=== PATIENT | female | born 1965 | race Caucasian/White ===

== ENCOUNTER → 2016-08-17 | Day surgery (SDC) | payer OTHER ==
[~2016-08-17] MED LIST: ASPIRIN EC81 M1 PO; ATENOLOL-CHLORT1 TA2; FLUOXETINE HCL20 M1 PO; LEVOTHYROXINE50 MC1 PO; LEVOXYL75 MC1 PO; MELOXICAM15 MG; MOBIC15 MG PO; NEURONTIN100 MG PO; OMEPRAZOLE40 MG PO; ONDANSETRON ODT4 MG; PEPCID40 MG PO; PRILOSEC; PRILOSEC20 M1 PO; PRILOSEC40 MG PO; SARAFEM20 MG PO; SERTRALINE HCL100 M1 PO; TIZANIDINE HCL4 M1 PO; ZANAFLEX4 M1 PO
--- NOTE | ~2016-08-17 | OR ---
Unit #: [id number] #: [id number] Patient: TAVO QUINTEROS [id number] [address] [address] [id number] O MR#: [id number] NAME: TAVO QUINTEROS ROOM: Date of Procedure: 08/17/2016 Admission Date: 08/17/2016 Surgeon: Matthieu Montero M.D. : 1965 Attending Physician: Matthieu Montero M.D. Primary Care Physician: Juan Grajeda M.D. OPERATIVE REPORT JOB NOTE: CC: DR. GRAJEDA PREOPERATIVE DIAGNOSIS Intermittent rectal bleeding. POSTOPERATIVE DIAGNOSIS Intermittent rectal bleeding. PROCEDURE PERFORMED Colonoscopy to cecum. ANESTHESIA Monitored anesthesia care. FINDINGS The patient was found to have mild internal hemorrhoids and redundant anal tissue. SPECIMENS Sent to pathology. COMPLICATIONS None apparent. CONDITION The patient tolerated the procedure well. INDICATIONS FOR PROCEDURE The patient is a 51-year-old white female, who has had intermittent bright red blood per rectum. She presents at this time for evaluation by colonoscopy. DESCRIPTION OF PROCEDURE After obtaining informed consent, the patient was brought to the endoscopy suite and after adequate monitored anesthesia care, had the colonoscope placed through the anus and advanced to the level of the cecum without difficulty with the lumen always in view. The cecum was normal as was the ileocecal valve. The ascending colon was normal as was the hepatic flexure, transverse colon, splenic flexure, descending colon, sigmoid colon and upper rectum. No diverticula were seen. On retroflexing in the rectum to the anorectal junction, the patient was found to have some [id number] internal hemorrhoids. On pulling back through the anal Unit #: [id number] #: [id number] Patient: TAVO QUINTEROS canal, there was no obvious abnormalities other than some redundant external skin. The scope was removed without difficulty. On digital examination, there was good sphincter tone. No masses palpable. The patient went from the endoscopy suite to the recovery area in stable condition. RECOMMENDATIONS High-fiber diet, lots of liquids, tucks or wipes p.r.n. Follow up as needed in the office. Dictated by... Mick Aguillon/maryanne TD: 08/17/2016 23:54 JOB #: [id number] CC: [facility] OPERATIVE REPORT X Matthieu Montero MD X PROCEDURE OPERATIVE NOTE
== END | disposition home or self-care (01) ==
LOC: COPS 10:17
DX: K64.8 Other hemorrhoids (principal); F32.9 Major depressive disorder, single episode, unspecified; E78.00 Pure hypercholesterolemia, unspecified; I10 Essential (primary) hypertension; E78.5 Hyperlipidemia, unspecified; K21.9 Gastro-esophageal reflux disease without esophagitis; E03.9 Hypothyroidism, unspecified; K58.9 Irritable bowel syndrome, unspecified; D64.9 Anemia, unspecified; J45.909 Unspecified asthma, uncomplicated; F17.210 Nicotine dependence, cigarettes, uncomplicated; Z98.890 Other specified postprocedural states; Z98.51 Tubal ligation status
CPT/HCPCS: J2250